=== PATIENT | male | born 1960 ===

== ENCOUNTER 2019-04-19 07:51 | Inpatient (IN) ==
[2019-04-19] MEDS ORDERED: MAGNESIUM SULF RIDER 2 GM in PREMIX 1 EACH IV PRN (10:32)
[2019-04-19] MEDS ORDERED: ACETAMINOPHEN 325 MG TABLET PO PRN (10:32)
[2019-04-19] MEDS ORDERED: ALUM/MAG/SIMETH/LIDO VISC 1:1 30 ML BOTTLE PO PRN (10:32)
[2019-04-19] MEDS ORDERED: POTASSIUM CHLORIDE 20 MEQ TABLET PO PRN (10:32)
[2019-04-19] MEDS ORDERED: DEXTROSE 50% 25 GM/50 ML VIAL IV PRN (10:32)
[2019-04-19] MEDS ORDERED: GLUCAGON 1 MG VIAL IM PRN (10:32)
[2019-04-19] MEDS ORDERED: ONDANSETRON 4 MG/2 ML VIAL IV PRN (10:32)
[2019-04-19 11:16] LABS: Basophils # 0.1 10*3/uL (0.0-0.2); Basophils % 0.6 % (0.0-0.8); Eosinophils # 0.1 10*3/uL (0.0-0.87); Eosinophils % 0.9 % (0.00-10.9); Hematocrit 39.9 VOL% (42.0-52.0); Immature Granulocytes % 0.6 %; Immature Granulocytes Absolute 0.06 #; Lymphocytes # 1.5 10*3/uL (1.4-4.0); Lymphocytes % 15.8 % (21.2-54.2); Mean Corpuscular HGB Conc 32.6 GM/DL (32-36); Mean Corpuscular Volume 88.9 FL (87-102); Mean Platelet Volume 9.1 FL (9.6-12.0); Monocytes % 6.6 % (1.7-12.7); Neutrophils % 75.5 % (38.7-73.9); Platelet Count 304 T/CUMM (130-400); Red Blood Count 4.49 MC/CUMM (3.8-5.5); Red Cell Distribution Width 14.5 % (9.3-17.3); White Blood Count 9.4 T/CUMM (4-12)
[2019-04-19] MEDS ORDERED: INFLUENZA VIRUS VACCINE 0.5 ML SYRINGE IM ONE (11:21)
[2019-04-19 11:55] LABS: Bilirubin,Total 0.5 MG/DL (0.2-1.0); Calcium 8.2 MG/DL (8.5-10.1)
[2019-04-19 11:57] LABS: CKMB % 5.3 %
[2019-04-19 12:03] LABS: Troponin I 5.05 NG/ML (0.00-0.045)
[2019-04-19] MEDS: ENOXAPARIN 100 MG/ML SYRINGE SUBCUT SCH ×2 (12:16→16:00)
[2019-04-19 14:24] LABS: Barbiturates Screen,Urine Negative (Negative); Benzodiazepines Screen,Urine Negative (Negative); Cannabinoid Screen,Urine Negative (Negative); Opiate Screen,Urine Negative (Negative); Phencyclidine Screen,Urine Negative (Negative)
[2019-04-19 15:41] LABS: Troponin I 7.31 NG/ML (0.00-0.045)
[2019-04-19 17:49] LABS: CKMB % 5.5 %; Troponin I 6.31 NG/ML (0.00-0.045)
[2019-04-19] MEDS: METOPROLOL TARTRATE 25 MG TABLET PO SCH (20:42)
[2019-04-20] MEDS: ENOXAPARIN 100 MG/ML SYRINGE SUBCUT SCH ×2 (00:41→11:10)
[2019-04-20 06:22] LABS: Basophils # 0.1 10*3/uL (0.0-0.2); Basophils % 0.9 % (0.0-0.8); Eosinophils # 0.3 10*3/uL (0.0-0.87); Eosinophils % 3.4 % (0.00-10.9); Hematocrit 40.5 VOL% (42.0-52.0); Hemoglobin 13.2 GM/DL (14.0-18.0); Immature Granulocytes % 0.4 %; Immature Granulocytes Absolute 0.04 #; Lymphocytes # 2.5 10*3/uL (1.4-4.0); Lymphocytes % 28.1 % (21.2-54.2); Mean Corpuscular HGB Conc 32.6 GM/DL (32-36); Mean Corpuscular Volume 89.4 FL (87-102); Mean Platelet Volume 9.7 FL (9.6-12.0); Monocytes % 7.1 % (1.7-12.7); Neutrophils % 60.1 % (38.7-73.9); Platelet Count 310 T/CUMM (130-400); Red Blood Count 4.53 MC/CUMM (3.8-5.5); Red Cell Distribution Width 14.4 % (9.3-17.3)
[2019-04-20 06:46] LABS: Risk Ratio 5.79; VLDL CHOLESTEROL 34.6 MG/DL
[2019-04-20 06:51] LABS: Bilirubin,Total 0.6 MG/DL (0.2-1.0); Calcium 8.5 MG/DL (8.5-10.1); Osmolality,Calculated 285.7 MOS/KG (273-304); Thyroid Stimulating Hormone 2.12 uIU/ml (0.358-3.74)
[2019-04-20] MEDS: PANTOPRAZOLE 40 MG TABLET PO SCH (08:46)
[2019-04-20] MEDS: ASPIRIN EC 325 MG TABLET PO SCH (08:46)
[2019-04-20] MEDS: METOPROLOL TARTRATE 25 MG TABLET PO SCH ×2 (08:46→20:29)
[2019-04-20] MEDS ORDERED: POTASSIUM CHLORIDE RIDER 10 MEQ in PREMIX 1 EACH IV PRN (15:43)
[2019-04-20] MEDS ORDERED: diphenhydrAMINE CAP 25 MG CAPSULE PO ONE (15:43)
[2019-04-20] MEDS ORDERED: MAGNESIUM SULF RIDER 2 GM in PREMIX 1 EACH IV PRN (15:43)
[2019-04-20] MEDS ORDERED: DIAZEPAM 5 MG TABLET PO ONE (15:43)
[2019-04-20] MEDS: ATORVASTATIN 40 MG TABLET PO SCH (20:30)
[2019-04-21] MEDS: ENOXAPARIN 100 MG/ML SYRINGE SUBCUT SCH (01:24)
[2019-04-21 05:22] LABS: Basophils # 0.1 10*3/uL (0.0-0.2); Eosinophils # 0.3 10*3/uL (0.0-0.87); Hematocrit 41.6 VOL% (42.0-52.0); Hemoglobin 13.4 GM/DL (14.0-18.0); Immature Granulocytes % 0.6 %; Immature Granulocytes Absolute 0.06 #; Lymphocytes # 2.8 10*3/uL (1.4-4.0); Lymphocytes % 27.6 % (21.2-54.2); Mean Corpuscular HGB Conc 32.2 GM/DL (32-36); Mean Corpuscular Volume 89.1 FL (87-102); Mean Platelet Volume 9.4 FL (9.6-12.0); Monocytes % 7.2 % (1.7-12.7); Neutrophils % 60.6 % (38.7-73.9); Platelet Count 286 T/CUMM (130-400); Red Blood Count 4.67 MC/CUMM (3.8-5.5); Red Cell Distribution Width 14.3 % (9.3-17.3)
[2019-04-21 05:47] LABS: Calcium 8.5 MG/DL (8.5-10.1)
[2019-04-21] MEDS ORDERED: DIAZEPAM 5 MG TABLET PO ONE (06:30)
[2019-04-21] MEDS ORDERED: diphenhydrAMINE CAP 25 MG CAPSULE PO ONE (06:30)
[2019-04-21] MEDS: ASPIRIN EC 325 MG TABLET PO SCH (08:38)
[2019-04-21] MEDS: PANTOPRAZOLE 40 MG TABLET PO SCH (08:38)
[2019-04-21] MEDS: SODIUM CHLORIDE 0.45% 1,000 ML IV SCH ×2 (09:24→10:23)
[2019-04-21] MEDS: METOPROLOL TARTRATE 25 MG TABLET PO SCH ×2 (09:24→20:40)
[2019-04-21] MEDS ORDERED: LIDOCAINE 1% 20 ML VIAL ONE (11:39)
[2019-04-21] MEDS ORDERED: HEPARIN/NACL 0.9% 2 UNITS/ML 1,000 ML IV ONE (11:39)
[2019-04-21] MEDS ORDERED: VERAPAMIL 5 MG/2 ML VIAL ONE (12:21)
[2019-04-21] MEDS ORDERED: NITROGLYCERIN DRIP 50 MG/250 ML BOTTLE IV ONE (12:21)
[2019-04-21] MEDS ORDERED: MIDAZOLAM 2 MG/2 ML VIAL ONE ×3 (12:32→13:46)
[2019-04-21] MEDS ORDERED: fentaNYL 100 MCG/2 ML VIAL ONE ×2 (12:33→13:46)
[2019-04-21] MEDS ORDERED: HEPARIN 5,000 UNIT/1 ML VIAL ONE ×2 (12:57→13:20)
[2019-04-21] MEDS ORDERED: EPTIFIBATIDE 20,000 MCG/10 ML VIAL ONE ×2 (13:22→13:24)
[2019-04-21] MEDS ORDERED: EPTIFIBATIDE 75 MG/100 ML BOTTLE IV ONE (13:22)
[2019-04-21] MEDS ORDERED: HEPARIN/NACL 0.9% 2 UNITS/ML 500 ML IV ONE (13:51)
[2019-04-21] MEDS ORDERED: TICAGRELOR 90 MG TABLET ONE (13:57)
[2019-04-21] MEDS ORDERED: ACETAMINOPHEN/CODEINE 300-30 MG TABLET PO PRN (14:25)
[2019-04-21] MEDS ORDERED: MORPHINE 4 MG/1 ML VIAL IV PRN (14:25)
[2019-04-21] MEDS: ATORVASTATIN 40 MG TABLET PO SCH (20:40)
[2019-04-21] MEDS ORDERED: TICAGRELOR 90 MG TABLET PO SCH (21:00)
[2019-04-22 05:42] LABS: Basophils # 0.1 10*3/uL (0.0-0.2); Basophils % 0.5 % (0.0-0.8); Eosinophils # 0.1 10*3/uL (0.0-0.87); Eosinophils % 0.7 % (0.00-10.9); Hematocrit 39.5 VOL% (42.0-52.0); Hemoglobin 13.1 GM/DL (14.0-18.0); Immature Granulocytes % 0.5 %; Immature Granulocytes Absolute 0.06 #; Lymphocytes # 1.3 10*3/uL (1.4-4.0); Lymphocytes % 11.5 % (21.2-54.2); Mean Corpuscular HGB Conc 33.2 GM/DL (32-36); Mean Platelet Volume 9.6 FL (9.6-12.0); Monocytes % 5.9 % (1.7-12.7); Neutrophils % 80.9 % (38.7-73.9); Platelet Count 285 T/CUMM (130-400); Red Blood Count 4.49 MC/CUMM (3.8-5.5); White Blood Count 11.4 T/CUMM (4-12)
[2019-04-22 06:14] LABS: Calcium 8.6 MG/DL (8.5-10.1); Osmolality,Calculated 274.7 MOS/KG (273-304)
[2019-04-22] MEDS: SODIUM CHLORIDE 0.45% 1,000 ML IV SCH (07:02)
[2019-04-22] MEDS ORDERED: CLOPIDOGREL 300 MG TABLET PO ONE (08:01)
[2019-04-22] MEDS ORDERED: ASPIRIN EC 81 MG TABLET PO SCH (09:00)
[2019-04-22] MEDS: PANTOPRAZOLE 40 MG TABLET PO SCH (09:10)
[2019-04-22] MEDS: METOPROLOL TARTRATE 25 MG TABLET PO SCH (09:10)
[2019-04-22 11:52] VITALS: BP 128/68
[2019-04-23] MEDS ORDERED: CLOPIDOGREL 75 MG TABLET PO SCH (09:00)
== END 2019-04-22 14:45 | disposition home or self-care (01) | DRG 251 ==
LOC: N.2W → SUATTDRO 09:34 → N.TELEN 18:39
PROVIDERS: ADMIT Internal Medicine; ATTEND Internal Medicine
PROC: CLCCHCL (ICD-10-PCS; 2019-04-21 12:15)